=== PATIENT | male | born 1965 | race Caucasian/White ===

== ENCOUNTER 2017-06-07 21:11 | Emergency (ER) | payer OTHER ==
[~2017-06-07] VITALS: Ht 172.7 cm; Wt 72.5 kg
[2017-06-08 01:34] VITALS: BP 110/78
== END 2017-06-08 01:45 | disposition home or self-care (01) ==
LOC: EMS 21:16
DX: F10.129 Alcohol abuse with intoxication, unspecified (principal); R41.82 Altered mental status, unspecified; I10 Essential (primary) hypertension; Z87.442 Personal history of urinary calculi; Y90.6 Blood alcohol level of 120-199 mg/100 ml
CPT/HCPCS: 36415; 99283; G0480

== ENCOUNTER 2017-09-04 17:20 | Emergency (ER) | payer OTHER ==
[~2017-09-04] VITALS: Ht 172.7 cm; Wt 65.1 kg
[2017-09-04] MEDS ORDERED: PANTOPRAZOLE SODIUM 40 MG/VIAL IVP ONE (18:30)
[2017-09-04 18:45] LABS: BASOPHILS % (AUTO) 0.5 % (0.0-2.0); EOSINOPHILS % (AUTO) 2.6 % (1.0-6.0); HEMATOCRIT 43.6 % (41-53); HEMOGLOBIN 15.3 g/dL (13.5-17.5); LYMPHOCYTES # (AUTO) 2.1 K/uL (1.0-4.8); LYMPHOCYTES % (AUTO) 38.8 % (22.0-44.0); MEAN CORPUSCULAR HEMOGLOBIN 35.2 pg (26.0-34.0); MEAN CORPUSCULAR HGB CONC 35.1 G/dL (31.0-37.0); MEAN CORPUSCULAR VOLUME 100 fL (80-100); MONOCYTES # (AUTO) 0.5 K/uL (0.1-1.0); MONOCYTES % (AUTO) 8.7 % (2.0-9.0); NEUTROPHILS # (AUTO) 2.7 K/uL (1.8-7.7); NEUTROPHILS % (AUTO) 49.4 % (40.0-70.0); PLATELET COUNT (AUTO) 178 K/uL (150-450); RED BLOOD CELL COUNT(AUTO) 4.35 MIL/uL (4.50-5.90); RED CELL DISTRIBUTION WIDTH 13.2 % (11.5-14.5)
[2017-09-04 18:57] LABS: INR 0.9 (0.9-1.1)
[2017-09-04 18:59] LABS: ANION GAP 8 mmol/L (8-16); CALCIUM, TOTAL 8.5 mg/dL (8.8-10.5); CARBON DIOXIDE 28 mmol/L (22-29); CHLORIDE 101 mmol/L (98-107); CREATININE 0.83 mg/dL (0.60-1.30); GLOMERULAR FILTR. RATE CALC > 60 mL/min (>60); GLUCOSE,RANDOM 96 mg/dL (70-110); POTASSIUM 3.8 mmol/L (3.5-5.1); SODIUM SERUM 137 mmol/L (136-145); UREA NITROGEN, BLOOD 13 mg/dL (7-18)
[2017-09-04 19:21] VITALS: BP 131/89
[2017-09-04 19:24] LABS: ALANINE AMINOTRANSFERASE 48 U/L (12-78); ALBUMIN 3.6 g/dL (3.4-5.0); ALKALINE PHOSPHATASE 146 U/L (46-116); ASPARTATE AMINOTRANSFERASE 62 U/L (15-37); BILIRUBIN,TOTAL 1.2 mg/dL (0.1-1.0); CREATINE KINASE MB 1.7 ng/mL (0-5); CREATINE KINASE, TOTAL 98 U/L (39-308); LIPASE 147 U/L (73-393); TOTAL PROTEIN, SERUM 7.2 g/dL (6.4-8.2)
== END 2017-09-04 20:08 | disposition home or self-care (01) ==
LOC: EMS 17:21
DX: F10.129 Alcohol abuse with intoxication, unspecified (principal); R07.2 Precordial pain; I10 Essential (primary) hypertension; Z87.442 Personal history of urinary calculi; Z91.030 Bee allergy status; Y90.6 Blood alcohol level of 120-199 mg/100 ml
CPT/HCPCS: 36415; 71010; 80053; 82550; 82553; 83690; 84484; 85025; 85610; 86850; 86900; 86901; 93005; 96374; 99285; C9113; G0480

== ENCOUNTER 2017-09-16 16:42 | Emergency (ER) | payer OTHER ==
[~2017-09-16] VITALS: Ht 177.8 cm; Wt 68.0 kg
[2017-09-16 17:46] LABS: BASOPHILS % (AUTO) 0.5 % (0.0-2.0); EOSINOPHILS % (AUTO) 2.7 % (1.0-6.0); HEMATOCRIT 37.2 % (41-53); HEMOGLOBIN 13.1 g/dL (13.5-17.5); LYMPHOCYTES # (AUTO) 1.6 K/uL (1.0-4.8); LYMPHOCYTES % (AUTO) 41.7 % (22.0-44.0); MEAN CORPUSCULAR HEMOGLOBIN 35.7 pg (26.0-34.0); MEAN CORPUSCULAR HGB CONC 35.3 G/dL (31.0-37.0); MEAN CORPUSCULAR VOLUME 101 fL (80-100); MONOCYTES # (AUTO) 0.4 K/uL (0.1-1.0); MONOCYTES % (AUTO) 9.5 % (2.0-9.0); NEUTROPHILS # (AUTO) 1.8 K/uL (1.8-7.7); NEUTROPHILS % (AUTO) 45.6 % (40.0-70.0); PLATELET COUNT (AUTO) 182 K/uL (150-450); RED BLOOD CELL COUNT(AUTO) 3.68 MIL/uL (4.50-5.90); WHITE BLOOD COUNT (AUTO) 3.9 K/uL (4.5-11.0)
[2017-09-16 17:51] LABS: APPEARANCE,URINE CLEAR (CLEAR); GLUCOSE, URINE (UA) NEGATIVE (NEGATIVE); KETONES,URINE NEGATIVE (NEGATIVE); LEUKOCYTE ESTERASE ,URINE NEGATIVE (NEGATIVE); OCCULT BLOOD,URINE NEGATIVE (NEGATIVE); PROTEIN,URINE NEGATIVE (NEGATIVE)
[2017-09-16 17:53] LABS: ADD UA MICROSCOPIC NO
[2017-09-16 17:55] LABS: ANION GAP 12 mmol/L (8-16); CARBON DIOXIDE 24 mmol/L (22-29); CHLORIDE 103 mmol/L (98-107); CREATININE 0.91 mg/dL (0.60-1.30); GLOMERULAR FILTR. RATE CALC > 60 mL/min (>60); POTASSIUM 3.6 mmol/L (3.5-5.1); SODIUM SERUM 139 mmol/L (136-145); UREA NITROGEN, BLOOD 15 mg/dL (7-18)
[2017-09-16 18:00] LABS: ALANINE AMINOTRANSFERASE 33 U/L (12-78); ALBUMIN 3.3 g/dL (3.4-5.0); ASPARTATE AMINOTRANSFERASE 41 U/L (15-37); BILIRUBIN,TOTAL 1.2 mg/dL (0.1-1.0); TOTAL PROTEIN, SERUM 6.6 g/dL (6.4-8.2)
[2017-09-16 19:04] LABS: RBC MORPHOLOGY COMMENT ABNORMAL RBC MORPH
[2017-09-16 19:22] VITALS: BP 118/81
== END 2017-09-16 20:13 | disposition home or self-care (01) ==
LOC: EMS 16:44
DX: S00.81XA Abrasion of other part of head, initial encounter (principal); S20.212A Contusion of left front wall of thorax, initial encounter; M54.2 Cervicalgia; F10.129 Alcohol abuse with intoxication, unspecified; I10 Essential (primary) hypertension; Y09 Assault by unspecified means; Z87.442 Personal history of urinary calculi; Z91.030 Bee allergy status
CPT/HCPCS: 36415; 70450; 71101; 72125; 80053; 80307; 81003; 85025; 93005; 99285; 99406; G0480

== ENCOUNTER 2022-05-02 16:28 | Emergency (ER) | payer OTHER ==
[~2022-05-02] VITALS: Ht 172.7 cm; Wt 58.2 kg
[2022-05-02 16:32] VITALS: BP 125/77
== END 2022-05-02 19:09 | disposition left against medical advice (07) ==
LOC: EMS 16:28
DX: R51.9 Headache, unspecified (principal); M54.2 Cervicalgia; F10.20 Alcohol dependence, uncomplicated; I10 Essential (primary) hypertension; Z87.442 Personal history of urinary calculi; Z91.030 Bee allergy status; Y04.8XXA Assault by other bodily force, initial encounter; Y93.89 Activity, other specified; Y92.89 Other specified places as the place of occurrence of the external cause; Y99.8 Other external cause status

== ENCOUNTER → 2024-08-06 | Emergency (ER) | payer OTHER ==
[~2024-08-06] VITALS: Ht 172.7 cm; Wt 63.6 kg
[2024-08-06 15:52] VITALS: BP 158/97; PULSE 79; RESP 18; TEMP 97.9; O2SAT 96
[2024-08-06] MEDS: ACETAMINOPHEN 325 MG TABLET PO ONE (18:13)
[2024-08-06] MEDS: PERTUSS(ACELL),DIPH,TET/PF 0.5 ML SYRINGE [ADULT] IM. ONE (18:14)
== END | disposition still patient (30) ==
LOC: EMS 15:44
DX: S50.312A Abrasion of left elbow, initial encounter (principal); F10.20 Alcohol dependence, uncomplicated; I10 Essential (primary) hypertension; Z91.030 Bee allergy status; V49.88XA Car occupant (driver) (passenger) injured in other specified transport accidents, initial encounter; Y93.89 Activity, other specified; Y92.481 Parking lot as the place of occurrence of the external cause; Y99.8 Other external cause status
CPT/HCPCS: 90471; 90715; 99283